=== PATIENT | male | born 2000 | race African-American/Black ===

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

== ENCOUNTER 2019-03-26 01:04 | Emergency (ER) | payer MEDICAID, OTHER ==
[~2019-03-26] VITALS: Ht 185.4 cm; Wt 108.9 kg
[~2019-03-26 01:04] MED LIST changes: +AMOXICILLIN500 MG ORAL; +IBUPROFEN600 MG ORAL; +TYLENOL325 MG ORAL
--- NOTE | 2019-03-26 01:24 | NUR ---
ED Nurse Note: Pt ambulated to ED from home, c/o pain with cough, green phlegm and runny nose for almost 2 weeks, denies fever or chills. Pt did get flu shot this season. PT is A&Ox4
[2019-03-26 01:28] VITALS: BP 132/62
[2019-03-26] MEDS ORDERED: ZYRTEC10 MG ORAL (01:50)
[2019-03-26 02:00] VITALS: BP 132/62
--- NOTE | 2019-03-26 02:00 | NUR ---
ER DISCHARGE NOTE: Patient is cleared to be discharged per ERMD, pt is aox4, on room air, with stable vital signs. pt was given dc and prescription instructions, pt was able to verbalize understanding, pt id band removed. pt is able to ambulate with steady gait. pt took all belongings.
--- NOTE | 2019-03-26 02:00 | Emergency Room Report ---
History of Present Illness General Chief Complaint: Flu Like Symptoms Source: Patient Present Illness HPI Patient presents with complaints of runny nose congestion mild sore throat and mild cough ongoing for the past 2 weeks Denies any sensation of shortness of breath Denies any vomiting or diarrhea denies any rash denies any headache denies any neck pain or photophobia Allergies: Coded Allergies: No Known Allergies (Unverified , 10/13/18) Patient History Past Medical History: see triage record Reviewed Nursing Documentation: PMH: Agreed; PSxH: Agreed Nursing Documentation-PMH Past Medical History: No Stated History Review of Systems All Other Systems: negative except mentioned in HPI Physical Exam Vital Signs Date Time Temp Pulse Resp B/P (MAP) Pulse Ox O2 Delivery O2 Flow Rate FiO2 03/26/19 01:17 98.4 78 18 132/62 (85) 97 Room Air Sp02 EP Interpretation: reviewed, normal General Appearance: well appearing, no apparent distress Head: normocephalic, atraumatic Eyes: bilateral eye PERRL, bilateral eye EOMI ENT: hearing grossly normal, EOM grossly intact, other - Clear rhinorrhea Neck: supple Respiratory: lungs clear, no respiratory distress, no retraction Cardiovascular #1: regular rate, rhythm Gastrointestinal: non tender, soft Musculoskeletal: normal inspection Neurologic: alert, oriented x3 Psychiatric: normal inspection Skin: no rash Lymphatic: normal inspection Medical Decision Making Diagnostic Impression: Primary Impression: Influenza-like symptoms ER Course Given the history and presentation multiple differentials and consideration including but not limited to pneumonia, bronchitis, flulike symptoms Patient's lung sounds are clear saturations are appropriate and patient does not appear to be in respiratory distress At this time will have initial conservative outpatient trial Last Vital Signs Date Time Temp Pulse Resp B/P (MAP) Pulse Ox O2 Delivery O2 Flow Rate FiO2 03/26/19 01:28 98.4 78 18 132/62 97 Room Air Status: unchanged Disposition: HOME, SELF-CARE Condition: Stable Scripts Cetirizine Hcl* (ZYRTEC*) 10 Mg Tablet 10 MG ORAL DAILY, #15 TAB 0 Refills Prov: Shelby Carrizales DO 03/26/19 Referrals: [facility],REFERRING (PCP) Patient Instructions: Influenza, Adult, [id number] Additional Instructions: Patient is provided with the discharge instructions notified to follow up with primary doctor in the next 2-3 days otherwise return to the er with any worsening symptoms. Please note that this report is being documented using DRAGON technology. This can lead to erroneous entry secondary to incorrect interpretation by the dictating instrument. Shelby Carrizales DO Mar 26, 2019 02:00
== END 2019-03-26 02:00 | disposition home or self-care (01) ==
LOC: EMR 01:45
DX: J11.1 Influenza due to unidentified influenza virus with other respiratory manifestations (principal)
CPT/HCPCS: 99282

== ENCOUNTER 2019-05-21 20:45 | Emergency (ER) | payer OTHER ==
[~2019-05-21] VITALS: Ht 182.9 cm; Wt 99.8 kg
[~2019-05-21 20:45] MED LIST changes: +ZYRTEC10 MG ORAL
[2019-05-21 21:00] VITALS: BP 107/57
--- NOTE | 2019-05-21 21:00 | NUR ---
ED Nurse Note: ambulated to ed c/o abdominal pain and painful urination x 2 days. denies hematuria. ao4. nad. vss. urine collected; sent down to lab.
--- NOTE | 2019-05-21 21:33 | Emergency Room Report ---
History of Present Illness General Chief Complaint: Male Urogenital Problems Source: Patient Present Illness HPI This is a 19-year-old male with no past medical history. He presents with complaint of nausea vomiting. Onset was 2 days ago. This occurred after eating some food. He vomited several times that day but since then is resolved. He came in because he said he still fell grabbing his stomach. He wanted to be flushed out. He denies any diarrhea. Eating drinking normally. Also has some dysuria. No frequency or discharge. No urgency. Worse with urination. No fever chills. Allergies: Coded Allergies: No Known Allergies (Unverified , 10/13/18) Patient History Past Medical History: see triage record, old chart reviewed Past Surgical History: none Pertinent Family History: none Social History: Denies: smoking Immunizations: other Reviewed Nursing Documentation: PMH: Agreed; PSxH: Agreed Nursing Documentation-PM Past Medical History: No Stated History Review of Systems Eye: Denies: eye pain, blurred vision ENT: Denies: ear pain, nose congestion, throat swelling Respiratory: Denies: cough, shortness of breath Cardiovascular: Denies: chest pain, palpitations Gastrointestinal: Reports: nausea, vomiting; Denies: abdominal pain, diarrhea Genitourinary: Reports: dysuria Musculoskeletal: Denies: back pain, joint pain Skin: Denies: rash Neurological: Denies: headache, numbness Endocrine: Denies: increased thirst, increased urine Hematologic/Lymphatic: Denies: easy bruising All Other Systems: negative except mentioned in HPI Physical Exam Vital Signs Date Time Temp Pulse Resp B/P (MAP) Pulse Ox O2 Delivery O2 Flow Rate FiO2 05/21/19 20:53 98.1 60 18 107/57 (74) 95 Room Air Vitals normal Sp02 EP Interpretation: reviewed, normal General Appearance: well appearing, no apparent distress, alert Head: normocephalic, atraumatic Eyes: bilateral eye PERRL, bilateral eye EOMI ENT: hearing grossly normal, normal pharynx Neck: full range of motion, supple, no meningismus Respiratory: chest non-tender, lungs clear, normal breath sounds Cardiovascular #1: regular rate, rhythm, no murmur Gastrointestinal: normal bowel sounds, non tender, no mass, no organomegaly, no bruit, non-distended Musculoskeletal: back normal, normal range of motion, gait/station normal Psychiatric: mood/affect normal Medical Decision Making Diagnostic Impression: Primary Impression: Urethritis ER Course Patient presents with abdominal pain was 2 days ago. No evidence of an acute abdomen. No evidence of obstruction. He does have some dysuria but urine is negative. We will treat him for urethritis. Most likely chlamydia. He does not want any Rocephin shot. Last Vital Signs Date Time Temp Pulse Resp B/P (MAP) Pulse Ox O2 Delivery O2 Flow Rate FiO2 05/21/19 20:53 98.1 60 18 107/57 (74) 95 Room Air Status: improved Disposition: HOME, SELF-CARE Condition: Stable Patient Instructions: Urethritis, Adult Additional Instructions: Follow-up your doctor in 7 days. Return if worse. Recommend outpatient testing for HIV, hepatitis, syphilis and other STDs. Oskar Thayer MD May 21, 2019 21:33
[2019-05-21 21:43] LABS: APPEARANCE,URINE CLEAR; BILIRUBIN, URINE NEGATIVE (NEGATIVE); COLOR,URINE PALE YELLOW; GLUCOSE, URINE (UA) NEGATIVE (NEGATIVE); KETONES,URINE NEGATIVE (NEGATIVE); LEUKOCYTE ESTERASE ,URINE NEGATIVE (NEGATIVE); NITRITE,URINE NEGATIVE (NEGATIVE); PH,URINE 7 (4.5-8.0); PROTEIN,URINE NEGATIVE (NEGATIVE); UROBILINOGEN,URINE 1 MG/DL (0.0-1.0)
[2019-05-21] MEDS ORDERED: Azithromycin 250mg tab ORAL ONE (22:00)
[2019-05-21 22:05] VITALS: BP 107/57
== END 2019-05-21 22:05 | disposition home or self-care (01) ==
LOC: EMR 22:05
DX: N34.2 Other urethritis (principal); R11.2 Nausea with vomiting, unspecified
CPT/HCPCS: 81003; Q0144; Z7502; 99283